=== PATIENT | female | born 1960 ===

== ENCOUNTER 2022-05-20 13:14 | Emergency (ER) | payer MEDICAID ==
[2022-05-20 14:23] VITALS: BP 128/70
--- NOTE | 2022-05-20 16:43 | Vascular Lab Report ---
DUPLEX DOPPLER LOWER EXTREMITY VEINS, LEFT INDICATION: leg pain. TECHNIQUE: Duplex doppler imaging was performed through the veins of the left lower extremity using venous compr ession and other maneuvers. COMPARISON: None available. FINDINGS: Common femoral vein: Negative. Superficial femoral vein: Negative. Popliteal vein: Negative. Calf veins: Negative. Additional findings: None. IMPRESSION: Negative for DVT. Signer Name: Bud Ray MD Signed: 05/20/2022 4:39 PM Workstation Name: [id number]
[2022-05-20 18:35] LABS: Hemoglobin 13.2 gm/dl (10.1-14.3); Mean Corpuscular HGB Conc 32 % (30-34); Mean Corpuscular Volume 97 fl (79-97); Platelet Count 250 K/mm3 (140-440); Red Blood Count 4.24 M/mm3 (3.65-5.03); Red Cell Distribution Width 14.9 % (13.2-15.2)
[2022-05-20] MEDS ORDERED: oxyCODONE /ACETAMINOPHEN 5-325MG TAB PO ONE (18:56)
--- NOTE | 2022-05-20 18:56 | Emergency Department Report ---
ED General Adult HPI - General Chief complaint: Extremity Problem,Nontraumatic Stated complaint: PAIN LEFT SIDE AND SWOLLEN LEFT LEG Time Seen by Provider: 05/20/22 18:55 Source: patient, family (Daughter.) Mode of arrival: Ambulatory Limitations: No Limitations - History of Present Illness Initial comments: This is a 67-year-old female who is hard of hearing brought in by daughter with concerns of left lower extremity pain. According to daughter there are no trauma or injury recently. However patient did sustain a similar fracture lox year November. Patient stated that patient started having left lower extremity pain around the knee region and also felt that as if her left lower extremity is more swollen than the right. Severity scale (0 -10): 8 - Related Data Previous Rx's Medication Instructions Recorded Last Taken Type Acyclovir [Zovirax Tab] 400 mg PO 5XD 5 Days #25 tab 09/02/21 Unknown Rx HYDROcodone/APAP 5-325 [Mckenzie 1 each PO Q4HR PRN #6 tablet 05/20/22 Unknown Rx 5/325] Allergies Allergy/AdvReac Type Severity Reaction Status Date / Time No Known Allergies Allergy Unverified 09/02/21 10:50 ED Review of Systems ROS: Stated complaint: PAIN LEFT SIDE AND SWOLLEN LEFT LEG Other details as noted in HPI Comment: All other systems reviewed and negative ED Past Medical Hx - Past Medical History Previous Medical History?: Yes Hx Hypertension: Yes Hx Diabetes: Yes - Medications Home Medications: Home Medications Medication Instructions Recorded Confirmed Last Taken Type Acyclovir [Zovirax Tab] 400 mg PO 5XD 5 Days #25 tab 09/02/21 Unknown Rx HYDROcodone/APAP 5-325 [Mckenzie 1 each PO Q4HR PRN #6 tablet 05/20/22 Unknown Rx 5/325] ED Physical Exam - General Limitations: No Limitations General appearance: alert, in no apparent distress - Head Head exam: Present: atraumatic, normocephalic, normal inspection - Eye Eye exam: Present: normal appearance, PERRL, EOMI Pupils: Present: normal accommodation - ENT ENT exam: Present: normal exam, mucous membranes moist - Neck Neck exam: Present: normal inspection, full ROM - Respiratory Respiratory exam: Present: normal lung sounds bilaterally - Cardiovascular Cardiovascular Exam: Present: regular rate, normal rhythm, normal heart sounds - GI/Abdominal GI/Abdominal exam: Present: soft - Extremities Exam Extremities exam: Present: normal inspection, full ROM, normal capillary refill - Expanded Lower Extremity Exam Left Hip exam: Present: normal inspection, full ROM. Absent: tenderness, swelling Upper Leg exam: Present: normal inspection, full ROM. Absent: tenderness, swelling Knee exam: Present: normal inspection, full ROM. Absent: tenderness, swelling Lower Leg exam: Present: normal inspection, full ROM, swelling. Absent: tenderness Ankle exam: Present: normal inspection, full ROM. Absent: tenderness Foot/Toe exam: Present: normal inspection, full ROM. Absent: tenderness - Back Exam Back exam: Present: normal inspection - Neurological Exam Neurological exam: Present: alert, oriented X3, CN II-XII intact - Psychiatric Psychiatric exam: Present: normal affect, normal mood - Skin Skin exam: Present: normal color ED Course Vital Signs 05/20/22 14:14 Temperature 98.4 F Pulse Rate 88 Respiratory 18 Rate Blood Pressure 128/70 [Left] O2 Sat by Pulse 100 Oximetry ED Medical Decision Making - Lab Data Result diagrams: 05/20/22 17:47 Critical care attestation.: If time is entered above; I have spent that time in minutes in the direct care of this critically ill patient, excluding procedure time. ED Disposition Clinical Impression: Lower extremity pain Disposition: 01 HOME / SELF CARE / HOMELESS Is pt being admited?: No Does the pt Need Aspirin: No Condition: Stable Additional Instructions: Make a follow-up appoint with primary care provider to be seen within 3 days for further outpatient evaluation. Prescriptions: HYDROcodone/APAP 5-325 [Mckenzie 5/325] 1 each PO Q4HR PRN #6 tablet PRN Reason: Pain Time of Disposition: 18:58
[2022-05-20 18:59] LABS: Alanine Aminotransferase 96 units/L (7-56); Albumin 4.3 g/dL (3.9-5); BUN/Creatinine Ratio 21; Blood Urea Nitrogen 17 mg/dL (7-17); Calcium 9.6 mg/dL (8.4-10.2); Hemolysis Index 29
[2022-05-20 19:07] LABS: Basophils % (Manual) 0 % (0.0-1.8); Total Cells Counted 100
[2022-05-20 19:08] LABS: Anisocytosis 1+; Large Platelets Few; Platelet Estimate Consistent w Auto; Smudge Cells 1+
== END 2022-05-20 19:20 | disposition home or self-care (01) ==
LOC: ED 13:14
DX: M79.662 Pain in left lower leg (principal); I10 Essential (primary) hypertension; E11.9 Type 2 diabetes mellitus without complications
CPT/HCPCS: 36415; 80053; 85007; 85025; 99284